=== PATIENT | male | born 1990 | race Caucasian/White ===

== ENCOUNTER → 2025-01-02 13:51 | Outpatient (CLI) | payer OTHER, SELFPAY ==
--- NOTE | 2025-01-02 17:51 | DI.NM.S_ITS ---
DATE OF SERVICE: 01/02/2025 EXERCISE TREADMILL STRESS TEST PROCEDURE: Exercise treadmill stress test without imaging. ORDERING PROVIDER: Karo Hernandez M.D. INDICATIONS: The patient is a 34-year-old male with a recent episode of palpitations, chest discomfort, and dyspnea. FINDINGS: 1. The patient was able to exercise for 10 minutes 41 seconds on a standard Evan protocol suggesting moderately impaired exercise capacity with an JOSE A of +21%, achieving 12.8 METS. 2. He had a normal heart rate and blood pressure response to exercise, achieving a maximum heart rate of 195 bpm (104% of his predicted maximum). 3. The patient reported a fleeting twinge of chest discomfort in mid stage III but without other chest discomfort or other anginal symptoms and was pain-free at peak exercise. 4. His resting ECG shows sinus rhythm with normal ST segments except an early repolarization pattern. There are no significant ST-segment shifts or arrhythmias with stress. IMPRESSION: 1. Normal exercise treadmill stress test for ischemia. 2. Moderately impaired exercise capacity with a normal heart rate and blood pressure response. He had a fleeting, atypical chest discomfort in mid exercise that resolved prior to peak exercise, and unlikely to be cardiac in etiology. 3. No arrhythmias were seen.. 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 COPIES MNE: KEHINDE;
== END ==
PROVIDERS: Referring Provider Internal Medicine Cardiovascular Disease; Visit Provider Internal Medicine Cardiovascular Disease
DX: R06.02 Shortness of breath (principal)
CPT/HCPCS: 93017

== ENCOUNTER → 2025-01-16 07:39 | Outpatient (CLI) | payer OTHER, SELFPAY ==
--- NOTE | 2025-01-16 07:40 | DI.ECHO.S_ITS ---
[facility] +---------+ Hospital : : [address] : : [place] : : [id number] : : Phone: [phone] Echocardiogram Report + + :Name: MEGHANN GARCIA Study Date: 01/16/2025 Height: 67 in : :Hospital ReadingLocation: Weight: 134 lb : : Gender: Male BSA: 1.7 m2 : :: 1990 Age: 34 yrs BP: 123/89 mmHg: :Reason For Study: SHORTNESS OF BREATH, CHEST PAIN : :Ordering Physician: CHAI, : :KARO Morejon Performed By: Nichol Tran : :Referring: KARO HERNANDEZ : + + Interpretation Summary The ejection fraction is estimated to be 55-60%. Diastolic parameters suggest probable normal left ventricular diastolic function and normal filling pressures. The right ventricle is normal in size and function. No significant valvular abnormalities. Pulmonary artery pressures cannot be estimated because of the lack of a measurable TR jet velocity but the IVC suggests a CVP of around 3 mmHg. Procedure: A two-dimensional transthoracic echocardiogram with color flow and Doppler was performed. The study quality was technically adequate. There is no prior echocardiogram noted for this patient. The patient was in sinus bradycardia with heart rates between 50-68 bpm during the exam. Left Ventricle: The left ventricle is normal in size and wall thickness. The ejection fraction is estimated to be 55-60%. Diastolic parameters suggest probable normal left ventricular diastolic function and normal filling pressures. Right Ventricle: The right ventricle is normal in size and function. Atria: The left atrial size is normal. Right atrial size is normal. There is no Doppler evidence for an interatrial shunt. Mitral Valve: The mitral valve leaflets appear to open well. There is trace mitral regurgitation. Aortic Valve: The aortic valve is trileaflet. The aortic valve opens well. There is no aortic valve stenosis. There is trace aortic regurgitation. Tricuspid Valve: The tricuspid valve leaflets are thin and pliable. There is a trace or physiologic amount of tricuspid regurgitation. Pulmonary artery pressures cannot be estimated because of the lack of a measurable TR jet velocity but the IVC suggests a CVP of around 3 mmHg. Pulmonic Valve: The pulmonic valve leaflets are thin and pliable; valve motion is normal. There is mild pulmonic regurgitation. Great Vessels: The aortic root is normal size. The dimensions of the ascending aorta are normal. The IVC is of normal diameter and collapses greater than 50% with a sniff. This suggests a low right atrial pressure of 3 mm Hg. Pericardium/ Pleura There is no pericardial effusion. There is no pleural effusion. MMode/2D Measurements & Calculations LVIDd: 4.5 cm LVOT diam: 2.0 cm LVIDs: 2.9 cm Ao root diam: 2.8 cm FS: 34.7 % asc Aorta Diam: 2.7 cm IVSd: 0.64 cm Ao Arch Diam (Prox Trans): 2.1 cm LVPWd: 0.80 cm LV harris. diameter/BSA (cm/m^2): 2.6 LV sys. diameter/BSA (cm/m^2): 1.7 LA A2 area: 12.1 cm2 RA long axis: 3.9 cm LA A4 area: 10.1 cm2 RA area: 12.5 cm2 LA length (vol): 4.0 cm RA vol: 34.3 ml LA vol: 25.8 ml RA : 20.1 ml/m2 LA vol index: 15.1 ml/m2 IVC diam: 1.4 cm RVD1 (basal): 3.3 cm RVD2 (mid): 3.1 cm TAPSE: 1.8 cm Doppler Measurements & Calculations Ao V2 max: 97.6 cm/sec LVOT Max Mamadou: 88.8 cm/sec Ao V2 mean: 68.4 cm/sec LV V1 max P.2 mmHg Ao max P.8 mmHg LV V1 VTI: 17.1 cm Ao mean P.1 mmHg EVETTE(I,D): 2.7 cm2 Ao V2 VTI: 20.7 cm EVETTE(V,D): 3.0 cm2 sev ratio: 0.83 EVETTE indexed to BSA (cm^2/m^2): 1.6 MV E max mamadou: 82.5 cm/sec PA V2 max: 92.1 cm/sec MV A max mamadou: 34.6 cm/sec PA V2 mean: 59.6 cm/sec MV E/A: 2.4 PA mean P.6 mmHg Med Peak E' Mamadou: 13.4 cm/sec PA pr(Accel): 32.8 mmHg E/E' med: 6.1 Lat Peak E' Mamadou: 17.1 cm/sec E/E' lat: 4.8 E/e' average: 5.5 MV dec time: 0.20 sec SV(LVOT): 55.7 ml Reading Physician:05:18 PM
== END ==
PROVIDERS: Referring Provider Internal Medicine Cardiovascular Disease; Visit Provider Internal Medicine Cardiovascular Disease
DX: I37.1 Nonrheumatic pulmonary valve insufficiency (principal); R06.02 Shortness of breath; R07.9 Chest pain, unspecified
CPT/HCPCS: 93306